=== PATIENT | male | born 2005 | race Caucasian/White ===

== ENCOUNTER 2024-01-31 05:43 | Emergency (ER) | payer SELFPAY ==
[~2024-01-31] VITALS: Ht 165.1 cm; Wt 73.0 kg
[2024-01-31 06:03] VITALS: BP 118/74; PULSE 96; RESP 18; TEMP 98.2; O2SAT 99
== END 2024-01-31 10:01 | disposition home or self-care (01) ==
LOC: ER 05:57
DX: F10.129 Alcohol abuse with intoxication, unspecified (principal); R41.82 Altered mental status, unspecified; Y90.9 Presence of alcohol in blood, level not specified
CPT/HCPCS: 99283